=== PATIENT | female | born 1980 | race Caucasian/White ===

== ENCOUNTER 2016-11-19 18:01 | Emergency (ER) | payer OTHER ==
[~2016-11-19] VITALS: Ht 165.1 cm; Wt 60.0 kg
[~2016-11-19 18:01] MED LIST: HYDR-3288 PO
[2016-11-19 18:05] VITALS: BP 113/71; PULSE 74; RESP 20; TEMP 97.4; O2SAT 100
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
[2016-11-19] MEDS ORDERED: IBUP800T23 PO (18:41)
[2016-11-19] MEDS ORDERED: ROBA500T PO (18:41)
[2016-11-19] MEDS ORDERED: IBUPROFEN 800 MG TAB PO ONE (18:45)
[2016-11-19] MEDS ORDERED: METHOCARBAMOL 500 MG TAB PO ONE (18:45)
[2016-11-19 19:17] LABS: BLOOD, URINE NEG (NEG); COMMENT (UR) CULT NOT INDICATED; CULTURE IF INDICATED CULT NOT INDICATED; GLUCOSE,URINE NEG (NEG); KETONE, URINE NEG (NEG); NITRITE,URINE NEG (NEG); SQUAMOUS EPITHELIAL CELL URINE 4 /hpf (0-5); URINE COLOR YELLOW (YELLW/STRAW)
[2016-11-19] MEDS ORDERED: DIFL150T PO (20:06)
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
[2016-11-19] MEDS ORDERED: cefTRIAXone 250 MG VIAL IM ONE (20:15)
[2016-11-19] MEDS ORDERED: AZITHROMYCIN PWD FOR SUSP 1 GM PACKET PO ONE (20:15)
[2016-11-19] MEDS ORDERED: LIDOCAINE HCL 1% 50 ML VIAL IM ONE (20:15)
[2016-11-19 21:41] LABS: CHLAMYDIA PCR NOT DETECTED (NOT DETECT); NEISSERIA PCR NOT DETECTED (NOT DETECT)
== END 2016-11-19 20:17 | disposition home or self-care (01) ==
LOC: NEPD 18:01
DX: S39.012A Strain of muscle, fascia and tendon of lower back, initial encounter (principal); N89.8 Other specified noninflammatory disorders of vagina; V49.9XXA Car occupant (driver) (passenger) injured in unspecified traffic accident, initial encounter; Y93.89 Activity, other specified; Y92.410 Unspecified street and highway as the place of occurrence of the external cause
CPT/HCPCS: 81001; 84703; 87210; 87491; 87591; 96372; 99284; J0696